=== PATIENT | female | born 1965 | race African-American/Black ===

== ENCOUNTER → 2017-01-08 | Outpatient (CLI) | payer MEDICARE, OTHER ==
[~2017-01-08] MED LIST: ALBU8HFA IH; ASPI-1132 PO; CALC1TAB87 PO; DIVA500T52 PO; GABA-531 PO; OLAN10TA6 PO; PANT40TA25 PO; SIMV-260 PO
== END | disposition home or self-care (01) ==
LOC: RADMN 15:15
PROVIDERS: ATTEND Internal Medicine
DX: M24.811 Other specific joint derangements of right shoulder, not elsewhere classified (principal)

== ENCOUNTER 2024-09-22 01:40 | Inpatient (IN) | payer MEDICARE, MEDICAID ==
[2024-09-22] VITALS (11 sets, daily range): BP systolic 117–131; BP diastolic 57–77; PULSE 58–67; RESP 16–18; TEMP 96.9–97.9; O2SAT 96–100
[~2024-09-22] VITALS: Ht 165.1 cm; Wt 82.1 kg
[~2024-09-22 01:40] MED LIST changes: +ALBU18HF12 IH; -ALBU8HFA IH; +DIVA-153 PO; -DIVA500T52 PO; +GABA-1181 PO; -GABA-531 PO; +OLAN10TA26 PO; -OLAN10TA6 PO; +PANT-31 PO; -PANT40TA25 PO
[2024-09-22 02:15] LABS: EOSINOPHILS % (AUTO) 2.9 % (1.0-6.0); HEMATOCRIT 45.7 % (36-46); HEMOGLOBIN 15.4 g/dL (12.0-16.0); LYMPHOCYTES % (AUTO) 36.2 % (22.0-44.0); MEAN CORPUSCULAR HEMOGLOBIN 30.3 pg (26.0-34.0); MEAN CORPUSCULAR HGB CONC 33.6 G/dL (31.0-37.0); MEAN CORPUSCULAR VOLUME 90 fL (80-100); MONOCYTES # (AUTO) 0.3 K/uL (0.1-1.0); MONOCYTES % (AUTO) 5.8 % (2.0-9.0); NEUTROPHILS % (AUTO) 54.1 % (40.0-70.0); PLATELET COUNT (AUTO) 224 K/uL (150-450); RED BLOOD CELL COUNT(AUTO) 5.06 MIL/uL (4.00-5.20); RED CELL DISTRIBUTION WIDTH 13.8 % (11.5-14.5); WHITE BLOOD COUNT (AUTO) 5.5 K/uL (4.5-11.0)
[2024-09-22 02:24] LABS: ANION GAP 12 mmol/L (8-16); CALCIUM, TOTAL 8.8 mg/dL (8.8-10.5); CARBON DIOXIDE 24 mmol/L (22-29); CHLORIDE 104 mmol/L (98-107); CREATININE 0.79 mg/dL (0.60-1.30); GLOMERULAR FILTR. RATE CALC > 60 mL/min (>60); GLUCOSE,RANDOM 73 mg/dL (70-110); POTASSIUM 4.1 mmol/L (3.5-5.1); SODIUM SERUM 140 mmol/L (136-145); UREA NITROGEN, BLOOD 17 mg/dL (7-18)
[2024-09-22 02:30] LABS: ALANINE AMINOTRANSFERASE 30 U/L (12-78); ALBUMIN 3.7 g/dL (3.4-5.0); ALKALINE PHOSPHATASE 73 U/L (46-116); ASPARTATE AMINOTRANSFERASE 23 U/L (15-37); BILIRUBIN,TOTAL 0.3 mg/dL (0.1-1.0); TOTAL PROTEIN, SERUM 6.8 g/dL (6.4-8.2)
[2024-09-22 02:37] LABS: B-TYPE NATRIURETIC PEPTIDE 19 pg/mL (0-100)
[2024-09-22] MEDS: SODIUM CHLORIDE 0.9% 1,000 ML IV ONE (04:45)
[2024-09-22] MEDS: KETOROLAC TROMETHAMINE 30 MG/ML VIAL IVP ONE (04:46)
[2024-09-22] MEDS: DiphenhydrAMINE HCL 50 MG/ML VIAL IVP ONE (04:46)
[2024-09-22 13:32] LABS: COVID AG,FIA SOURCE NASAL SWAB
[2024-09-22 14:11] LABS: SARS-COV2 (COVID) ANTIGEN,FIA Negative (Negative)
[2024-09-22] MEDS ORDERED: MAGNESIUM HYDROXIDE SUSPENSION 30 ML UDCUP PO PRN (16:15)
[2024-09-22] MEDS ORDERED: QUEtiapine FUMARATE 100 MG TABLET PO PRN (16:15)
[2024-09-22] MEDS ORDERED: TUBERCULIN, PURIFIED PROTEIN DERIVATIVE 5 TU/0.1 ML SYRINGE ID ONE (16:15)
[2024-09-22] MEDS ORDERED: GuaiFENesin/D-METHORPHAN [SUGAR-FREE] 200-20MG/10 ML SYRUP UDCUP PO PRN (16:15)
[2024-09-22] MEDS ORDERED: MAG HYDROX/ALUMINUM HYD/SIMETH ES 30 ML SUSPENSION UDCUP PO PRN (16:15)
[2024-09-22] MEDS ORDERED: LOPERAMIDE HCL 2 MG CAPSULE PO PRN ×2 (16:15)
[2024-09-22] MEDS ORDERED: PROMETHAZINE HCL 25 MG TABLET PO PRN (16:15)
[2024-09-22] MEDS ORDERED: HydrOXYzine PAMOATE 50 MG CAPSULE PO PRN (16:15)
[2024-09-22] MEDS ORDERED: MELATONIN 5 MG TABLET PO PRN (16:15)
[2024-09-22] MEDS ORDERED: LORazepam 2 MG TABLET PO PRN (16:15)
[2024-09-22] MEDS: THIAMINE 100 MG TABLET PO SCH (17:24)
[2024-09-22] MEDS ORDERED: PNEUMOCOCCAL VACCINE POLYVALENT 0.5 ML SYRINGE [PPSV23] IM. ONE (19:45)
[2024-09-22] MEDS ORDERED: INFLUENZA VIRUS VACCINE TVS (6MO+) 2024-25/PF 45 MCG/0.5 ML SYRINGE IM. ONE (19:45)
[2024-09-22] MEDS ORDERED: ALBUTEROL SULFATE HFA 90 MCG/PUFF 8 GM INHALER IH PRN (20:00)
[2024-09-22] MEDS: QUEtiapine FUMARATE 200 MG TABLET PO SCH (20:41)
[2024-09-22] MEDS: SIMVASTATIN 20 MG TABLET PO SCH (20:41)
[2024-09-22] MEDS: DIVALPROEX SODIUM 500 MG ER TABLET PO SCH (20:41)
[2024-09-22] MEDS: CYANOCOBALAMIN 1,000 MCG/ML VIAL IM ONE (20:41)
[2024-09-22] MEDS: ACETAMINOPHEN 325 MG TABLET PO PRN (23:00)
[2024-09-23] VITALS (8 sets, daily range): BP systolic 110–148; BP diastolic 55–90; PULSE 58–130; RESP 18; TEMP 96–98.4; O2SAT 96–100
[2024-09-23] MEDS ORDERED: LORazepam 2 MG TABLET PO PRN (07:00)
[2024-09-23 08:31] LABS: BASOPHILS % (AUTO) 0.6 % (0.0-2.0); EOSINOPHILS % (AUTO) 4.7 % (1.0-6.0); HEMATOCRIT 47.2 % (36-46); HEMOGLOBIN 15.6 g/dL (12.0-16.0); LYMPHOCYTES # (AUTO) 1.7 K/uL (1.0-4.8); LYMPHOCYTES % (AUTO) 39.1 % (22.0-44.0); MEAN CORPUSCULAR HEMOGLOBIN 29.9 pg (26.0-34.0); MEAN CORPUSCULAR VOLUME 91 fL (80-100); MONOCYTES # (AUTO) 0.4 K/uL (0.1-1.0); MONOCYTES % (AUTO) 8.8 % (2.0-9.0); NEUTROPHILS % (AUTO) 46.8 % (40.0-70.0); PLATELET COUNT (AUTO) 209 K/uL (150-450); RED CELL DISTRIBUTION WIDTH 13.9 % (11.5-14.5); WHITE BLOOD COUNT (AUTO) 4.3 K/uL (4.5-11.0)
[2024-09-23] MEDS: OMEGA-3/DHA/EPA/FISH OIL 1,000 MG CAPSULE PO SCH (08:38)
[2024-09-23] MEDS: LORazepam 2 MG TABLET PO SCH (08:38)
[2024-09-23] MEDS: PANTOPRAZOLE SODIUM 40 MG DR TABLET PO SCH (08:39)
[2024-09-23] MEDS: DULoxetine HCL 20 MG CAPSULE PO SCH (08:39)
[2024-09-23] MEDS: MULTIVITAMINS WITH MINERALS, THERAPEUTIC TABLET PO SCH (08:39)
[2024-09-23] MEDS: NALTREXONE HCL 50 MG TABLET PO SCH (08:39)
[2024-09-23] MEDS: FOLIC ACID 1 MG TABLET PO SCH (08:39)
[2024-09-23 08:49] LABS: HEMOGLOBIN A1C 5.2 % (3.8-5.6)
[2024-09-23 08:56] LABS: ALANINE AMINOTRANSFERASE 23 U/L (12-78); ALBUMIN 2.8 g/dL (3.4-5.0); ALKALINE PHOSPHATASE 68 U/L (46-116); ANION GAP 6 mmol/L (8-16); ASPARTATE AMINOTRANSFERASE 17 U/L (15-37); BILIRUBIN,TOTAL 0.2 mg/dL (0.1-1.0); CALCIUM, TOTAL 8.4 mg/dL (8.8-10.5); CARBON DIOXIDE 29 mmol/L (22-29); CHLORIDE 108 mmol/L (98-107); CHOL/HDL RATIO 3.2 (3.9-5.7); CHOLESTEROL 191 mg/dL (131-200); CREATININE 0.74 mg/dL (0.60-1.30); GLOMERULAR FILTR. RATE CALC > 60 mL/min (>60); GLUCOSE,RANDOM 82 mg/dL (70-110); HDL CHOLESTEROL 59 mg/dL (40-60); LDL CHOL (CALC.) 118 mg/dL (0-130); POTASSIUM 4.5 mmol/L (3.5-5.1); SODIUM SERUM 143 mmol/L (136-145); THYROID STIMULATING HORMONE 1.17 uIU/mL (0.36-3.74); TOTAL PROTEIN, SERUM 5.8 g/dL (6.4-8.2); TRIGLYCERIDES 72 mg/dL (15-150); UREA NITROGEN, BLOOD 21 mg/dL (7-18)
[2024-09-24 08:11] VITALS: BP 111/76; PULSE 79; RESP 17; TEMP 96.9; O2SAT 97
[2024-09-24] MEDS: DULoxetine HCL 30 MG CAPSULE PO SCH (08:23)
[2024-09-24] MEDS: LORazepam 1 MG TABLET PO SCH (13:00)
[2024-09-24 20:29] VITALS: BP 112/68; PULSE 72; RESP 17; TEMP 98; O2SAT 98
[2024-09-24 20:47] VITALS: BP 112/68; PULSE 72; RESP 17; TEMP 98; O2SAT 98
[2024-09-24 22:26] VITALS: RESP 18
[2024-09-25] MEDS ORDERED: LORazepam 1 MG TABLET PO PRN (07:00)
[2024-09-25 08:14] VITALS: BP 136/74; PULSE 58; RESP 17; TEMP 97.7; O2SAT 100
[2024-09-25 18:26] VITALS: BP 136/74; PULSE 70; RESP 18; TEMP 98.1; O2SAT 98
[2024-09-25 20:26] VITALS: BP 147/80; PULSE 64; RESP 18; TEMP 97.5; O2SAT 97
[2024-09-26 00:14] VITALS: BP 147/80; PULSE 64; RESP 18; TEMP 97.5; O2SAT 97
[2024-09-26] MEDS ORDERED: LORazepam 1 MG TABLET PO PRN (07:00)
[2024-09-26 09:00] VITALS: BP 127/83; PULSE 60; RESP 17; TEMP 98.2; O2SAT 96
[2024-09-26 16:09] VITALS: BP 147/80; RESP 18; O2SAT 98
[2024-09-26 20:49] VITALS: BP 135/85; PULSE 95; RESP 16; TEMP 97.7; O2SAT 100
[2024-09-26 23:40] VITALS: BP_SYST 134; BP_SYST 136; BP_DIAS 82; BP_DIAS 86; PULSE 82; RESP 18; TEMP 98; O2SAT 100
[2024-09-27] MEDS: ZOLPIDEM TARTRATE 10 MG TABLET PO PRN (02:03)
[2024-09-27 09:38] VITALS: BP 146/82; PULSE 90; RESP 18; TEMP 97.7; O2SAT 97
[2024-09-27] MEDS ORDERED: NALT50TA33 PO (13:17)
[2024-09-27] MEDS ORDERED: DULO-114 PO (13:19)
[2024-09-27] MEDS ORDERED: QUET200T5 PO (13:20)
[2024-09-27] MEDS ORDERED: OMEG100033 PO (13:22)
== END 2024-09-27 19:03 | disposition home or self-care (01) | DRG 885 ==
LOC: EMS 01:40 → B2X 15:26
PROVIDERS: ADMIT Psychiatry & Neurology Psychiatry; ATTEND Psychiatry & Neurology Psychiatry
PROC: GZHZZZZ Group Psychotherapy (ICD-10-PCS; principal; 2024-09-22)
PROC: GZ58ZZZ Individual Psychotherapy, Cognitive-Behavioral (ICD-10-PCS; 2024-09-22)
DX: F33.3 Major depressive disorder, recurrent, severe with psychotic symptoms (principal); J44.89 Other specified chronic obstructive pulmonary disease; R45.851 Suicidal ideations; Z59.00 Homelessness unspecified; Z20.822 Contact with and (suspected) exposure to COVID-19; F10.10 Alcohol abuse, uncomplicated; I10 Essential (primary) hypertension; E66.9 Obesity, unspecified; E78.5 Hyperlipidemia, unspecified; F17.200 Nicotine dependence, unspecified, uncomplicated; R79.89 Other specified abnormal findings of blood chemistry; E78.00 Pure hypercholesterolemia, unspecified; F60.0 Paranoid personality disorder; K21.9 Gastro-esophageal reflux disease without esophagitis; G89.29 Other chronic pain; F43.10 Post-traumatic stress disorder, unspecified; Z85.3 Personal history of malignant neoplasm of breast; Z90.710 Acquired absence of both cervix and uterus; Z55.9 Problems related to education and literacy, unspecified; Z59.9 Problem related to housing and economic circumstances, unspecified; Z63.9 Problem related to primary support group, unspecified; Z65.3 Problems related to other legal circumstances; Z91.148 Patient's other noncompliance with medication regimen for other reason; Z91.199 Patient's noncompliance with other medical treatment and regimen due to unspecified reason; Z91.51 Personal history of suicidal behavior
CPT/HCPCS: 80048; 80053; 80061; 80076; 83036; 83880; 84439; 84443; 85025; 86592; 99285; J1200; J1885; J3420; J7030

== ENCOUNTER 2025-01-08 01:29 | Emergency (ER) | payer OTHER ==
[~2025-01-08] VITALS: Ht 167.6 cm; Wt 92.7 kg
[~2025-01-08 01:29] MED LIST changes: -ALBU18HF12 IH; -ASPI-1132 PO; -CALC1TAB87 PO; -DIVA-153 PO; +DULO-114 PO; -GABA-1181 PO; +NALT50TA33 PO; -OLAN10TA26 PO; +OMEG100033 PO; +QUET200T5 PO
[2025-01-08 01:50] VITALS: TEMP 99.3
[2025-01-08 02:06] VITALS: BP 176/106; PULSE 88; RESP 18; O2SAT 97
[2025-01-08] MEDS ORDERED: TRIA5PAS10 TP (02:15)
[2025-01-08] MEDS ORDERED: AMOX500C2 PO (02:17)
== END 2025-01-08 02:35 | disposition home or self-care (01) ==
LOC: EMS 01:51
DX: K02.9 Dental caries, unspecified (principal); K13.79 Other lesions of oral mucosa; J45.909 Unspecified asthma, uncomplicated; I10 Essential (primary) hypertension; F31.9 Bipolar disorder, unspecified; F17.210 Nicotine dependence, cigarettes, uncomplicated; Z90.710 Acquired absence of both cervix and uterus; Z79.899 Other long term (current) drug therapy
CPT/HCPCS: 99283; Z7502